=== PATIENT | male | born 1955 | race Caucasian/White ===

== ENCOUNTER 2021-03-17 22:07 | Inpatient (IN) | payer OTHER ==
[2021-03-17] MEDS ORDERED: MAGNESIUM HYDROX 2400MG/30ML ORAL SUSPENSION 30 ML CUP PO PRN (22:39)
[2021-03-17] MEDS ORDERED: ACETAMINOPHEN 325 MG TABLET (FP) PO PRN (22:39)
[2021-03-17] MEDS ORDERED: MAG HYDROX/AL HYDROX/SIMETH 30 ML UNIT-DOSE CUP PO PRN (22:39)
[2021-03-17] MEDS ORDERED: hydrOXYzine PAMOATE 25 MG CAPSULE (FP) PO PRN (22:39)
[2021-03-17] MEDS ORDERED: P-EPHED 60MG/TRIPROLIDI 2.5MG TABLET PO PRN (22:39)
[2021-03-17] MEDS ORDERED: guaiFENesin 200 MG/10 ML 10 ML UNIT-DOSE CUPS PO PRN (22:39)
[2021-03-17] MEDS ORDERED: LOPERAMIDE HCL 2 MG CAPSULE PO PRN (22:39)
[2021-03-17] MEDS ORDERED: MAGNESIUM CITRATE 300 ML BOTTLE PO PRN (22:39)
[2021-03-17 22:48] VITALS: BMI 25.0
[2021-03-17] MEDS ORDERED: TUBERCULIN PPD 5 TU/0.1ML VIAL ID ONE (23:43)
[2021-03-17] MEDS: MELATONIN 5 MG TABLETS PO SCH (23:45)
[2021-03-18] MEDS: IBUPROFEN 400 MG TABLET (FP) PO PRN (06:23)
[2021-03-18] MEDS: METHOCARBAMOL 500 MG TABLET PO SCH ×3 (06:23→21:11)
[2021-03-18] MEDS: PRENATAL VITAMINS W/ FOLIC ACID TABLET (FP) PO SCH (10:05)
[2021-03-18 10:31] LABS: HEMATOCRIT 31.8 % (35.4-49); MCH 24.1 pg (25.7-33.7); MCHC 31.5 g/dl (32.0-35.9); MEAN CELL VOLUME 76.5 fl (80-96); MEAN PLT VOLUME 7.8 fl (7.5-11.1); PLATELET COUNT 264 10^3/uL (134-434); RBC 4.16 M/mm3 (4.00-5.60); RDW 26.3 % (11.9-15.9); WHITE BLOOD COUNT 4.3 K/mm3 (4.0-10.0)
[2021-03-18] MEDS: NALTREXONE HCL 50 MG TABLET PO SCH (10:58)
[2021-03-18 12:42] LABS: ALBUMIN 4.3 g/dl (3.4-5.0); BLOOD UREA NITROGEN 24.3 mg/dL (7-18); CALCIUM 9.3 mg/dL (8.5-10.1); CREATININE 1.6 mg/dL (0.55-1.3); TOT PROT 7.4 g/dl (6.4-8.2)
[2021-03-18] MEDS: SERTRALINE HCL 50 MG TABLET (FP) PO SCH (13:49)
[2021-03-18] MEDS: LIDOCAINE 5% TOPICAL PATCH TP SCH (14:32)
[2021-03-18 14:33] LABS: PH,URINE 5.5 (5.0-8.0); URINE APPEARANCE CLEAR; URINE BILIRUBIN 1+ (NEGATIVE); URINE COLOR DK YELLOW; URINE GLUCOSE (UA) NEGATIVE (NEGATIVE); URINE KETONE TRACE (NEGATIVE); URINE LEUK ESTERASE NEGATIVE (NEGATIVE); URINE NITRITE NEGATIVE (NEGATIVE); URINE PROTEIN NEGATIVE (NEGATIVE)
[2021-03-18] MEDS: FERROUS SO4 325 MG TABLET (FP) PO SCH (17:39)
[2021-03-18] MEDS: THIAMINE HCL 100 MG TABLET (FP) PO SCH (21:11)
[2021-03-18] MEDS: MELATONIN 5 MG TABLETS PO SCH (21:11)
[2021-03-18] MEDS: LIDOCAINE PATCH REMOVAL MC SCH (21:12)
[2021-03-18] MEDS: traZODone HCL 100 MG TABLET (FP) PO SCH (21:12)
[2021-03-18] MEDS ORDERED: METHYL SALICYLATE/MENTHOL OINT 30 GM TUBE TP SCH (22:00)
[2021-03-19] MEDS: METHOCARBAMOL 500 MG TABLET PO SCH ×3 (06:28→21:04)
[2021-03-19] MEDS: FERROUS SO4 325 MG TABLET (FP) PO SCH ×2 (07:03→17:44)
[2021-03-19] MEDS: NALTREXONE HCL 50 MG TABLET PO SCH (09:47)
[2021-03-19] MEDS: PRENATAL VITAMINS W/ FOLIC ACID TABLET (FP) PO SCH (09:47)
[2021-03-19] MEDS: SERTRALINE HCL 50 MG TABLET (FP) PO SCH (09:47)
[2021-03-19] MEDS: LIDOCAINE 5% TOPICAL PATCH TP SCH (09:49)
[2021-03-19] MEDS: traZODone HCL 100 MG TABLET (FP) PO SCH (21:04)
[2021-03-19] MEDS: THIAMINE HCL 100 MG TABLET (FP) PO SCH (21:04)
[2021-03-19] MEDS: MELATONIN 5 MG TABLETS PO SCH (21:04)
[2021-03-19] MEDS: LIDOCAINE PATCH REMOVAL MC SCH (21:04)
[2021-03-20] MEDS: METHOCARBAMOL 500 MG TABLET PO SCH ×3 (06:38→21:21)
[2021-03-20] MEDS: FERROUS SO4 325 MG TABLET (FP) PO SCH ×2 (07:09→17:59)
[2021-03-20] MEDS: PRENATAL VITAMINS W/ FOLIC ACID TABLET (FP) PO SCH (09:46)
[2021-03-20] MEDS: LIDOCAINE 5% TOPICAL PATCH TP SCH (09:47)
[2021-03-20] MEDS: NALTREXONE HCL 50 MG TABLET PO SCH (09:47)
[2021-03-20] MEDS: SERTRALINE HCL 50 MG TABLET (FP) PO SCH (09:47)
[2021-03-20] MEDS: traZODone HCL 100 MG TABLET (FP) PO SCH (21:21)
[2021-03-20] MEDS: THIAMINE HCL 100 MG TABLET (FP) PO SCH (21:21)
[2021-03-20] MEDS: LIDOCAINE PATCH REMOVAL MC SCH (21:21)
[2021-03-20] MEDS: MELATONIN 5 MG TABLETS PO SCH (21:21)
[2021-03-21] MEDS: FERROUS SO4 325 MG TABLET (FP) PO SCH ×2 (07:39→18:03)
[2021-03-21] MEDS: PRENATAL VITAMINS W/ FOLIC ACID TABLET (FP) PO SCH (09:48)
[2021-03-21] MEDS: NALTREXONE HCL 50 MG TABLET PO SCH (09:49)
[2021-03-21] MEDS: SERTRALINE HCL 50 MG TABLET (FP) PO SCH (09:49)
[2021-03-21] MEDS: LIDOCAINE 5% TOPICAL PATCH TP SCH (09:49)
[2021-03-21] MEDS: MELATONIN 5 MG TABLETS PO SCH (21:21)
[2021-03-21] MEDS: THIAMINE HCL 100 MG TABLET (FP) PO SCH (21:21)
[2021-03-21] MEDS: traZODone HCL 100 MG TABLET (FP) PO SCH (21:21)
[2021-03-21] MEDS: LIDOCAINE PATCH REMOVAL MC SCH (21:22)
[2021-03-22] MEDS: FERROUS SO4 325 MG TABLET (FP) PO SCH ×2 (07:22→17:27)
[2021-03-22] MEDS: PRENATAL VITAMINS W/ FOLIC ACID TABLET (FP) PO SCH (09:57)
[2021-03-22] MEDS: NALTREXONE HCL 50 MG TABLET PO SCH (09:58)
[2021-03-22] MEDS: LIDOCAINE 5% TOPICAL PATCH TP SCH (09:58)
[2021-03-22] MEDS: SERTRALINE HCL 50 MG TABLET (FP) PO SCH (09:58)
[2021-03-22 17:43] LABS: SYPHILIS W/ RPR CONF NON-REACTIVE (NONREACTIVE)
[2021-03-22] MEDS: traZODone HCL 100 MG TABLET (FP) PO SCH (21:09)
[2021-03-22] MEDS: THIAMINE HCL 100 MG TABLET (FP) PO SCH (21:09)
[2021-03-22] MEDS: MELATONIN 5 MG TABLETS PO SCH (21:09)
[2021-03-22] MEDS: LIDOCAINE PATCH REMOVAL MC SCH (21:10)
[2021-03-23] MEDS: FERROUS SO4 325 MG TABLET (FP) PO SCH ×2 (07:07→19:02)
[2021-03-23] MEDS ORDERED: PT OWN MED DRAWER 7, Y5N ONE (08:58)
[2021-03-23] MEDS: PRENATAL VITAMINS W/ FOLIC ACID TABLET (FP) PO SCH (09:54)
[2021-03-23] MEDS: SERTRALINE HCL 50 MG TABLET (FP) PO SCH (09:54)
[2021-03-23] MEDS: LIDOCAINE 5% TOPICAL PATCH TP SCH (09:55)
[2021-03-23] MEDS: NALTREXONE HCL 50 MG TABLET PO SCH (09:55)
[2021-03-23] MEDS: MELATONIN 5 MG TABLETS PO SCH (21:16)
[2021-03-23] MEDS: traZODone HCL 100 MG TABLET (FP) PO SCH (21:16)
[2021-03-23] MEDS: THIAMINE HCL 100 MG TABLET (FP) PO SCH (21:16)
[2021-03-23] MEDS: LIDOCAINE PATCH REMOVAL MC SCH (21:16)
[2021-03-23] MEDS: IBUPROFEN 400 MG TABLET (FP) PO PRN (21:17)
[2021-03-24] MEDS: PRENATAL VITAMINS W/ FOLIC ACID TABLET (FP) PO SCH (10:13)
[2021-03-24] MEDS: SERTRALINE HCL 50 MG TABLET (FP) PO SCH (10:13)
[2021-03-24] MEDS: FERROUS SO4 325 MG TABLET (FP) PO SCH ×2 (10:14→17:37)
[2021-03-24] MEDS: LIDOCAINE 5% TOPICAL PATCH TP SCH (10:14)
[2021-03-24] MEDS: NALTREXONE HCL 50 MG TABLET PO SCH (11:37)
[2021-03-24] MEDS: IBUPROFEN 400 MG TABLET (FP) PO PRN (22:22)
[2021-03-24] MEDS: THIAMINE HCL 100 MG TABLET (FP) PO SCH (22:22)
[2021-03-24] MEDS: traZODone HCL 100 MG TABLET (FP) PO SCH (22:22)
[2021-03-24] MEDS: MELATONIN 5 MG TABLETS PO SCH (22:23)
[2021-03-24] MEDS: LIDOCAINE PATCH REMOVAL MC SCH (22:23)
[2021-03-25] MEDS: PRENATAL VITAMINS W/ FOLIC ACID TABLET (FP) PO SCH (10:17)
[2021-03-25] MEDS: LIDOCAINE 5% TOPICAL PATCH TP SCH (10:17)
[2021-03-25] MEDS: SERTRALINE HCL 50 MG TABLET (FP) PO SCH (10:18)
[2021-03-25] MEDS: FERROUS SO4 325 MG TABLET (FP) PO SCH ×2 (10:18→17:23)
[2021-03-25] MEDS: NALTREXONE HCL 50 MG TABLET PO SCH (10:18)
[2021-03-25] MEDS: THIAMINE HCL 100 MG TABLET (FP) PO SCH (21:19)
[2021-03-25] MEDS: LIDOCAINE PATCH REMOVAL MC SCH (21:19)
[2021-03-25] MEDS: traZODone HCL 100 MG TABLET (FP) PO SCH (21:19)
[2021-03-25] MEDS: MELATONIN 5 MG TABLETS PO SCH (21:19)
[2021-03-25] MEDS: IBUPROFEN 400 MG TABLET (FP) PO PRN (21:19)
[2021-03-26] MEDS ORDERED: PT OWN MED DRAWER 7, Y5N ONE (08:45)
[2021-03-26] MEDS: NALTREXONE HCL 50 MG TABLET PO SCH (09:58)
[2021-03-26] MEDS: SERTRALINE HCL 50 MG TABLET (FP) PO SCH (09:58)
[2021-03-26] MEDS: PRENATAL VITAMINS W/ FOLIC ACID TABLET (FP) PO SCH (09:58)
[2021-03-26] MEDS: LIDOCAINE 5% TOPICAL PATCH TP SCH (09:59)
[2021-03-26] MEDS: FERROUS SO4 325 MG TABLET (FP) PO SCH ×2 (09:59→17:34)
[2021-03-26] MEDS: THIAMINE HCL 100 MG TABLET (FP) PO SCH (21:45)
[2021-03-26] MEDS: traZODone HCL 100 MG TABLET (FP) PO SCH (21:45)
[2021-03-26] MEDS: MELATONIN 5 MG TABLETS PO SCH (21:45)
[2021-03-26] MEDS: LIDOCAINE PATCH REMOVAL MC SCH (21:46)
[2021-03-27] MEDS: PRENATAL VITAMINS W/ FOLIC ACID TABLET (FP) PO SCH (09:53)
[2021-03-27] MEDS: LIDOCAINE 5% TOPICAL PATCH TP SCH (09:54)
[2021-03-27] MEDS: FERROUS SO4 325 MG TABLET (FP) PO SCH ×2 (09:54→17:47)
[2021-03-27] MEDS: NALTREXONE HCL 50 MG TABLET PO SCH (09:54)
[2021-03-27] MEDS: SERTRALINE HCL 50 MG TABLET (FP) PO SCH (09:54)
[2021-03-27] MEDS: THIAMINE HCL 100 MG TABLET (FP) PO SCH (21:11)
[2021-03-27] MEDS: IBUPROFEN 400 MG TABLET (FP) PO PRN (21:11)
[2021-03-27] MEDS: traZODone HCL 100 MG TABLET (FP) PO SCH (21:11)
[2021-03-27] MEDS: MELATONIN 5 MG TABLETS PO SCH (21:11)
[2021-03-27] MEDS: LIDOCAINE PATCH REMOVAL MC SCH (21:13)
[2021-03-28] MEDS: SERTRALINE HCL 50 MG TABLET (FP) PO SCH (09:35)
[2021-03-28] MEDS: PRENATAL VITAMINS W/ FOLIC ACID TABLET (FP) PO SCH (09:35)
[2021-03-28] MEDS: LIDOCAINE 5% TOPICAL PATCH TP SCH (09:36)
[2021-03-28] MEDS: FERROUS SO4 325 MG TABLET (FP) PO SCH ×2 (09:36→17:03)
[2021-03-28] MEDS: NALTREXONE HCL 50 MG TABLET PO SCH (09:36)
[2021-03-28] MEDS: THIAMINE HCL 100 MG TABLET (FP) PO SCH (21:09)
[2021-03-28] MEDS: IBUPROFEN 400 MG TABLET (FP) PO PRN (21:09)
[2021-03-28] MEDS: traZODone HCL 100 MG TABLET (FP) PO SCH (21:09)
[2021-03-28] MEDS: MELATONIN 5 MG TABLETS PO SCH (21:10)
[2021-03-28] MEDS: LIDOCAINE PATCH REMOVAL MC SCH (21:10)
[2021-03-29] MEDS: PRENATAL VITAMINS W/ FOLIC ACID TABLET (FP) PO SCH (09:37)
[2021-03-29] MEDS: SERTRALINE HCL 50 MG TABLET (FP) PO SCH (09:37)
[2021-03-29] MEDS: NALTREXONE HCL 50 MG TABLET PO SCH (09:38)
[2021-03-29] MEDS: FERROUS SO4 325 MG TABLET (FP) PO SCH ×2 (09:38→17:47)
[2021-03-29] MEDS: LIDOCAINE 5% TOPICAL PATCH TP SCH (09:38)
[2021-03-29] MEDS: IBUPROFEN 400 MG TABLET (FP) PO PRN (21:03)
[2021-03-29] MEDS: LIDOCAINE PATCH REMOVAL MC SCH (21:04)
[2021-03-29] MEDS: traZODone HCL 100 MG TABLET (FP) PO SCH (21:04)
[2021-03-29] MEDS: MELATONIN 5 MG TABLETS PO SCH (21:04)
[2021-03-29] MEDS: THIAMINE HCL 100 MG TABLET (FP) PO SCH (21:04)
[2021-03-30] MEDS: SERTRALINE HCL 50 MG TABLET (FP) PO SCH (09:35)
[2021-03-30] MEDS: FERROUS SO4 325 MG TABLET (FP) PO SCH ×2 (09:35→17:57)
[2021-03-30] MEDS: PRENATAL VITAMINS W/ FOLIC ACID TABLET (FP) PO SCH (09:35)
[2021-03-30] MEDS: LIDOCAINE 5% TOPICAL PATCH TP SCH (09:36)
[2021-03-30] MEDS: NALTREXONE HCL 50 MG TABLET PO SCH (09:37)
[2021-03-30] MEDS: THIAMINE HCL 100 MG TABLET (FP) PO SCH (21:22)
[2021-03-30] MEDS: LIDOCAINE PATCH REMOVAL MC SCH (21:22)
[2021-03-30] MEDS: traZODone HCL 100 MG TABLET (FP) PO SCH (21:22)
[2021-03-30] MEDS: MELATONIN 5 MG TABLETS PO SCH (21:22)
[2021-03-31 06:57] VITALS: BP 102/67; PULSE 96; TEMP 97.7
[2021-03-31] MEDS: SERTRALINE HCL 50 MG TABLET (FP) PO SCH (09:25)
[2021-03-31] MEDS: PRENATAL VITAMINS W/ FOLIC ACID TABLET (FP) PO SCH (09:25)
[2021-03-31] MEDS: NALTREXONE HCL 50 MG TABLET PO SCH (09:25)
[2021-03-31] MEDS: LIDOCAINE 5% TOPICAL PATCH TP SCH (09:26)
[2021-03-31] MEDS: FERROUS SO4 325 MG TABLET (FP) PO SCH (09:26)
== END 2021-03-31 09:50 | disposition home or self-care (01) | DRG 772 ==
LOC: YASAS 22:07 → Y5N 23:03
PROVIDERS: ADMIT Allergy & Immunology; ATTEND Allergy & Immunology
PROC: HZ42ZZZ Group Counseling for Substance Abuse Treatment, Cognitive-Behavioral (ICD-10-PCS; principal; 2021-03-17)
DX: F10.20 Alcohol dependence, uncomplicated (principal); F10.282 Alcohol dependence with alcohol-induced sleep disorder; F32.A Depression, unspecified; K21.9 Gastro-esophageal reflux disease without esophagitis; D50.9 Iron deficiency anemia, unspecified; M25.512 Pain in left shoulder; R00.0 Tachycardia, unspecified; Z62.810 Personal history of physical and sexual abuse in childhood; Z56.0 Unemployment, unspecified
CPT/HCPCS: 36415; 80053; 81003; 85027; 86780; 86803; 87811; 93005; 93010; C9803; U0003; U0005